=== PATIENT | female | born 1980 | race Two or more races ===

== ENCOUNTER 2016-11-01 21:41 | Emergency (ER) | payer BC, OTHER ==
[~2016-11-01] VITALS: Ht 152.4 cm; Wt 62.1 kg
[2016-11-01 22:22] VITALS: BP 130/92
== END 2016-11-02 00:09 | disposition home or self-care (01) ==
LOC: ER 21:45
DX: J06.9 Acute upper respiratory infection, unspecified (principal); Z98.890 Other specified postprocedural states
CPT/HCPCS: 99283; A4606; Z7610